=== PATIENT | male | born 1970 | race Caucasian/White ===

== ENCOUNTER 2017-06-18 19:51 | Emergency (ER) | payer MEDICAID, SELFPAY, OTHER ==
[2017-06-18] MEDS: ERYTHROMYCIN OPHTH OINT OD (22:30)
[2017-06-18] MEDS: ACETAMINOPHEN 325 MG TAB PO (22:30)
== END 2017-06-18 22:30 | disposition home or self-care (01) ==
LOC: M ED 19:51
DX: H10.9 Unspecified conjunctivitis (principal); S00.03XA Contusion of scalp, initial encounter; W22.8XXA Striking against or struck by other objects, initial encounter; Y92.018 Other place in single-family (private) house as the place of occurrence of the external cause; F17.210 Nicotine dependence, cigarettes, uncomplicated
CPT/HCPCS: 99283

== ENCOUNTER 2017-12-18 19:58 | Emergency (ER) | payer OTHER, MEDICAID | END 2017-12-18 21:59 | disposition home or self-care (01) | LOC: M ED 19:58 | DX: S61.216A Laceration without foreign body of right little finger without damage to nail, initial encounter (principal); W26.8XXA Contact with other sharp object(s), not elsewhere classified, initial encounter; Y92.9 Unspecified place or not applicable; Y93.9 Activity, unspecified; Y99.9 Unspecified external cause status; Z72.0 Tobacco use | CPT/HCPCS: 99283 ==

== ENCOUNTER → 2020-05-03 | Outpatient (CLI) | payer SELFPAY ==
[~2020-05-03] MED LIST: ERYTOIN8 OD; ZITH500T PO; [UNRECOGNIZED DRUG - REMARK]
== END ==
LOC: M LABSMTC 09:56
PROVIDERS: ATTEND Pediatrics
DX: Z11.59 Encounter for screening for other viral diseases (principal)

== ENCOUNTER → 2025-02-21 | Outpatient (CLI) | payer OTHER | LOC: M PLAIMG 11:33 | DX: M79.602 Pain in left arm (principal); M79.641 Pain in right hand ==